=== PATIENT | female | born 1960 | race Caucasian/White ===

== ENCOUNTER 2017-03-31 00:41 | Inpatient (IN) ==
[2017-03-31] MEDS ORDERED: SODIUM CHLORIDE 0.9% 1,000 ML IV STA (01:47)
[2017-03-31] MEDS ORDERED: ONDANSETRON 4 MG/2 ML VIAL IV STA (01:47)
[2017-03-31] MEDS ORDERED: HYDROmorphone 2 MG/1 ML VIAL IV STA (01:47)
[2017-03-31 02:06] LABS: Basophils % 0.1 % (0.0-0.8); Eosinophils % 0.2 % (0.00-10.9); Hematocrit 42.2 VOL% (35.7-47.0); Hemoglobin 14.5 GM/DL (12.0-16.0); Immature Granulocytes % 0.4 %; Immature Granulocytes Absolute 0.05 #; Lymphocytes # 1.8 10*3/uL (1.4-4.0); Lymphocytes % 13.9 % (21.3-54.2); Mean Corpuscular HGB Conc 34.4 GM/DL (32-36); Mean Corpuscular Hemoglobin 34 PG (27-34); Mean Corpuscular Volume 99.1 FL (87-102); Mean Platelet Volume 9.5 FL (9.6-12.0); Monocytes # 0.6 10*3/uL (0.11-0.8); Monocytes % 4.9 % (1.7-12.7); Neutrophils # 10.5 10*3/uL (1.4-7.4); Neutrophils % 80.5 % (38.7-73.9); Platelet Count 217 T/CUMM (130-400); Red Blood Count 4.26 MC/CUMM (3.8-5.5); Red Cell Distribution Width 13.2 % (9.3-17.3)
--- NOTE | 2017-03-31 02:07 | Emergency Department Note ---
IArabella Hilary, am scribing for, and in the presence of, Palak Kent DO 01: 60. IDonte Debra, DO, personally performed the services described in this documentation, ascribed by Neema Bell in my presence, and it is both accurate and complete . Arrival - Arrival Chief Complaint: Abdominal / Flank Pain Stated Complaint: stomach pain/possibe diverticulitis/? heart attack ED Nursing Triage Note: C/O Mid upper abd pain radiating to lower abd. Onset 1700 yesterday. Pt is sedated at time of triage reporting that she took pain meds prior to arrival. Pt reports a history of diverticulitis and states that she thinks that is what is going on. Denies fever. Last BM- yesterday. Denies urinary s/s. Pt is being treated in [place] for Lung CA with oral chemo Mode of Arrival: Wheelchair Limitations: No Limitations Source: Patient, RN Notes Reviewed Time Seen by Provider: 03/31/17 01:35 - History of Present Illness HPI Narrative: Pt is a 56 y/o white female presenting to the ED with c/o abdominal pain which onset yesterday around 1700. She reports having a hx of diverticulitis and states that the pain is the same. She confirms nausea, vomiting and chills. Her states that 2mo she had surgery for her diverticulitis and that they were told she had another abscess but it was small and they "didn't want to mess with it", she was in the hospital for 8 days while it drained. No other complaints or problems stated in the ED. Pt is being treated in [place] for Lung CA with oral chemo. Onset (ago): day(s) Consistency: constant Severity: severe Severity scale (1-10): 5 Quality: stabbing Date of Last Menstrual Period: PM Allergies/Adverse Reactions: Allergies Allergy/AdvReac Type Severity Reaction Status Date / Time No Known Allergies Allergy Verified 02/20/17 14:04 Home Medications: Home Medications Medication Instructions Recorded Confirmed Type Hydromorphone HCl [Dilaudid] 4 - 8 mg PO Q4H PRN 02/03/16 03/31/17 History Oxycodone HCl [Oxycontin] 1 tablet PO Q12H 02/03/16 03/31/17 History Prochlorperazine Tab [Compazine 10 mg PO Q6H PRN 08/18/16 03/31/17 History Tab] Ascorbic Acid Tab [Vitamin C Tab] 500 mg PO BID 11/25/16 03/31/17 History Cholecalciferol (Vitamin D3) 3,000 unit PO DAILY 11/25/16 03/31/17 History [Vitamin D3] Cyanocobalamin (Vitamin B-12) 1,000 mcg PO DAILY 11/25/16 03/31/17 History [Vitamin B-12] Milk Thistle Seed Extract [Milk 350 mg PO BID 11/25/16 03/31/17 History Thistle] Pyridoxine HCl (Vitamin B6) 250 mg PO DAILY 11/25/16 03/31/17 History [Vitamin B-6] Hydrocortisone 2.5% Cream 1 applic TOP TID PRN #0 applic 11/28/16 03/31/17 Rx ALPRAZolam [Alprazolam] 2 mg PO BID PRN 02/20/17 03/31/17 History Folic Acid/Mv,Iron,Min [One Daily 1 each PO DAILY 02/20/17 03/31/17 History For Women Tablet] Gabapentin [Gabapentin] 600 mg PO Q8H 02/20/17 03/31/17 History Levothyroxine Tab [Synthroid Tab] 75 mcg PO DAILY@0700 02/20/17 03/31/17 History Meloxicam [Meloxicam] 15 mg PO DAILY 02/20/17 03/31/17 History cloNIDine TAB [Catapres Tab] 0.1 mg PO DAILY PRN #20 tablet 02/20/17 03/31/17 Rx Review of System - Review of System 12 point system: reviewed and no additional remarkable complaints except as stated - Review of System Constitutional: Present: chills Gastrointestinal: Present: abdominal pain, nausea, vomiting Medical,Surgical,& Family Hx - Medical History Neurology: History of: Migraine HEENT: History of: Dental Problems (UPPER DENTURES) Rheumatology: History of;: Fibromyalgia, Rheumatoid Arthritis Respiratory: History of: COPD, Lung Cancer (04/2015), Respiratory Problems ( PAINFUL MASS R NECK) Musculoskeletal: History of: Musculoskeletal Problems (WHIP LASH FIBROMALYGIA) Reproductive: No history of: Reproductive Problems (no menstral period in 8 years) Other: History of: Cancer (Stage IV Lung CA) - Surgical History Neurologic Surgeries: Surgical HX of: Neurologic Surgery (METASTATIC BRAIN CA- TUMOR REMOVED) - Family History Family History: Reports;: Family Cancer - Social History Smoking Status: Current every day smoker Frequency of Alcohol Use: None Type of Drug Use: None Exam Vital Signs: Vital Signs Temperature 98.5 F 03/31/17 02:34 Pulse Rate 68 03/31/17 02:34 Respiratory Rate 14 03/31/17 02:34 Blood Pressure 151/85 03/31/17 02:34 O2 Sat by Pulse Oximetry 97 03/31/17 00:50 - General General appearance: alert, in no apparent distress - Head Head exam: Present: atraumatic, normocephalic - Eye Eye exam: Present: normal appearance, PERRL, EOMI - ENT ENT exam: Present: mucous membranes moist, TM's normal bilaterally. Absent: mucous membranes dry - Neck Neck exam: Present: full ROM, trachea midline. Absent: tenderness - Chest Chest inspection: Present: symmetric chest wall rise. Absent: tenderness - Respiratory Respiratory exam: Present: normal lung sounds bilaterally. Absent: respiratory distress - Cardiovascular Cardiovascular exam: Present: regular rate, normal rhythm, normal heart sounds. Absent: murmur, rubs, gallop - Abdominal Exam Abdominal exam: Present: soft, tenderness (diffusely, left greater than right tenderness), normal bowel sounds. Absent: distention - Extremities Exam Extremities exam: Present: full ROM. Absent: tenderness - Back Exam Back exam: Present: full ROM. Absent: tenderness - Neurological Exam Neurological exam: Present: alert, oriented X3, CN II-XII intact. Absent: motor sensory deficit - Psychiatric Psychiatric exam: Present: normal affect, normal mood - Skin Skin exam: Present: warm, dry, intact, normal color. Absent: rash Course Course Narrative: spoke with DR Ng who will take pt to sx in am . Results - Labs CBC & BMP: 03/31/17 01:51 03/31/17 01:51 Lab Results: I have reviewed the patients labs Labs: Laboratory Tests 03/31/17 01:51 WBC 13.0 H RBC 4.26 Hgb 14.5 Hct 42.2 Plt Count 217 MPV 9.5 L Neut % (Auto) 80.5 H Lymph % (Auto) 13.9 L Neut # (Auto) 10.5 H Laboratory Tests 03/31/17 03/31/17 01:51 01:51 INR 1.0 PT Patient/Control Mix 10.8 Circ Anticoag PTT 26.2 Sodium 139 Potassium 3.2 L Chloride 106 Carbon Dioxide 28 BUN 16 Creatinine 0.90 Glucose 140 H ALT 73 H Alkaline Phosphatase 218 H Total Protein 7.6 Globulin 3.8 H Albumin/Globulin Ratio 1.0 L - Diagnostic Findings Procedure: CT Abdomen and Pelvis: report reviewed by me (acute appendicitis) Disposition Clinical Impression: Acute appendicitis Case discussed with: patient, patient's family Disposition: Still a Patient Condition: Stable Time of Disposition: 03:38
[2017-03-31 02:16] LABS: PT Patient Result 10.8 SECS; Partial Thromboplastin Time 26.2 SECS (0-40)
[2017-03-31] MEDS ORDERED: ONDANSETRON 4 MG/2 ML VIAL ONE (02:18)
[2017-03-31] MEDS ORDERED: HYDROmorphone 2 MG/1 ML VIAL ONE (02:19)
[2017-03-31 02:23] LABS: Alanine Aminotransferase 73 U/L (13-56); Albumin 3.8 G/DL (3.4-5.0); Alkaline Phosphatase 218 U/L (45-117); Aspartate Amino Transferase 36 U/L (0-37); Bilirubin,Total < 0.39 MG/DL (0.2-1.0); Blood Urea Nitrogen 16 MG/DL (7-18); Calcium 8.9 MG/DL (8.5-10.1); Glucose 140 MG/DL (74-106); Osmolality,Calculated 279.5 MOS/KG (273-304); Potassium 3.2 MMOL/L (3.5-5.1); Sodium 139 MMOL/L (136-145); Total Protein 7.6 G/DL (6.4-8.3)
[2017-03-31] MEDS ORDERED: ONDANSETRON 4 MG/2 ML VIAL IV PRN ×2 (03:39)
[2017-03-31] MEDS: HYDROmorphone 2 MG/1 ML VIAL IV PRN ×4 (04:34→21:06)
[2017-03-31] MEDS: DEXTROSE 5% NACL 0.45% 1,000 ML IV SCH ×2 (04:34→15:33)
[2017-03-31] MEDS ORDERED: BUPIVACAINE MPF 0.25% /EPI 30 ML VIAL ONE (06:21)
[2017-03-31] MEDS ORDERED: LIDOCAINE 1%/EPI INJ 20 ML VIAL ONE (06:22)
--- NOTE | 2017-03-31 07:07 | General Surg History&Physical ---
Assessment and Plan (1) Acute appendicitis Status: Acute Assessment and plan: This patient has acute appendicitis. I have recommended a laparoscopic appendectomy. Her monoclonal antibiotic treatment for lung cancer will be discussed with her oncologist on Saturday for now I have recommended proceeding with surgery to treat her appendicitis. I discussed the risks, benefits, and alternatives of the operation, and the expected outcomes have been reviewed. Patient would like to proceed with the operation. Current Visit: Yes History of Present Illness Chief complaint: Abdominal pain History of present illness: Ms. Dyer is a 56 year old female with a history of metastatic lung cancer currently on Keytruda who presents to the hospital with abdominal pain and nausea. She had elevated white blood cell count and right lower quadrant pain and the CT scan showed acute nonperforated appendicitis. She is admitted to the hospital for antibiotics and resuscitation and laparoscopic appendectomy. Home Medications Medication Instructions Recorded Confirmed Type Hydromorphone HCl [Dilaudid] 4 - 8 mg PO Q4H PRN 02/03/16 03/31/17 History Oxycodone HCl [Oxycontin] 1 tablet PO Q12H 02/03/16 03/31/17 History Prochlorperazine Tab [Compazine 10 mg PO Q6H PRN 08/18/16 03/31/17 History Tab] Ascorbic Acid Tab [Vitamin C Tab] 500 mg PO BID 11/25/16 03/31/17 History Cholecalciferol (Vitamin D3) 3,000 unit PO DAILY 11/25/16 03/31/17 History [Vitamin D3] Cyanocobalamin (Vitamin B-12) 1,000 mcg PO DAILY 11/25/16 03/31/17 History [Vitamin B-12] Milk Thistle Seed Extract [Milk 350 mg PO BID 11/25/16 03/31/17 History Thistle] Pyridoxine HCl (Vitamin B6) 250 mg PO DAILY 11/25/16 03/31/17 History [Vitamin B-6] Hydrocortisone 2.5% Cream 1 applic TOP TID PRN #0 applic 11/28/16 03/31/17 Rx ALPRAZolam [Alprazolam] 2 mg PO BID PRN 02/20/17 03/31/17 History Folic Acid/Mv,Iron,Min [One Daily 1 each PO DAILY 02/20/17 03/31/17 History For Women Tablet] Gabapentin [Gabapentin] 600 mg PO Q8H 02/20/17 03/31/17 History Levothyroxine Tab [Synthroid Tab] 75 mcg PO DAILY@0700 02/20/17 03/31/17 History Meloxicam [Meloxicam] 15 mg PO DAILY 02/20/17 03/31/17 History cloNIDine TAB [Catapres Tab] 0.1 mg PO DAILY PRN #20 tablet 02/20/17 03/31/17 Rx Allergies Allergy/AdvReac Type Severity Reaction Status Date / Time No Known Allergies Allergy Verified 02/20/17 14:04 Medical,Surgical,& Family Hx - Medical History Neurology: History of: Migraine HEENT: History of: Dental Problems (UPPER DENTURES) Rheumatology: History of;: Fibromyalgia, Rheumatoid Arthritis Respiratory: History of: COPD, Lung Cancer (04/2015), Respiratory Problems ( PAINFUL MASS R NECK) Gastrointestinal: History of: Diverticulitis/ Diverticulosis Musculoskeletal: History of: Musculoskeletal Problems (WHIP LASH FIBROMALYGIA) No history of: Amputation Reproductive: No history of: Reproductive Problems (no menstral period in 8 years) Other: History of: Cancer (Stage IV Lung CA) - Surgical History Thoracic Surgeries: Patient denies;: Organ Transplant Neurologic Surgeries: Surgical HX of: Neurologic Surgery (METASTATIC BRAIN CA- TUMOR REMOVED) HEENT Surgeries: Patient denies: Tonsilectomy & Adenoidectomy Abdominal Surgeries: Patient denies: Appendectomy - Family History Family History: Reports;: Family Cancer - Social History Smoking Status: Current every day smoker Frequency of Alcohol Use: None Type of Drug Use: None Exam - Constitutional Vitals: Period Temp Pulse Resp BP Sys/Mera Pulse Ox Last 24 Hr 98.5 F-98.7 F 53-68 12-18 128-151/81-85 97-100 General appearance: normal weight, no acute distress - Head Head exam: Present: normal inspection, normocephalic - Eye Eye exam: Present: EOMI. Absent: scleral icterus Pupils: Present: ROSANNE - ENT ENT exam: Present: normal exam Mouth exam: Present: normal external inspection, normal voice - Neck Neck exam: Present: normal inspection, trachea midline - Respiratory Respiratory exam: Present: clear to auscultation bilaterally. Absent: accessory muscle use, chest wall tenderness - Cardiovascular Cardiovascular exam: Present: RRR. Absent: systolic murmur, tachycardia - GI/Abdominal GI/Abdominal exam: Present: normal bowel sounds, tenderness (There is focal tenderness in the right lower quadrant with rebound and guarding), soft. Absent : rebound - Extremities Exam Extremities exam: Present: normal inspection, normal capillary refill - Back Exam Back exam: Present: normal inspection - Neurological Exam Neurological exam: Present: alert, oriented X3 Speech: Present: normal - Skin Skin exam: Present: normal color, warm - Constitutional Constitutional: Present: as per HPI - EENT Nose, mouth and throat: Present: as per HPI - Cardiovascular Cardiovascular: Present: as per HPI - Respiratory Respiratory: Present: as per HPI - Gastrointestinal Gastrointestinal: Present: as per HPI - Genitourinary Genitourinary: Present: as per HPI - Musculoskeletal Musculoskeletal: Present: as per HPI - Neurological Neurological: Present: as per HPI - Endocrine Endocrine: Present: as per HPI Hematologic/Lymphatic: Present: as per HPI Results - Labs CBC & BMP: 03/31/17 01:51 03/31/17 01:51 - Diagnostic Findings Procedure: CT Abdomen and Pelvis: image reviewed by me (Acute appendicitis with dilated appendix is fluid-filled and thickened wall. There is no evidence of perforation or abscess.)
[2017-03-31] MEDS: PANTOPRAZOLE 40 MG TABLET PO SCH (08:49)
--- NOTE | 2017-03-31 08:50 | CT Report ---
Referring physician: Palak Kent DO EXAM: CT abdomen and pelvis with contrast DATE: 03/31/2017 COMPARISON: 11/25/2016 REASON: Generalized abdominal pain TECHNIQUE: Axial images of the abdomen and pelvis were obtained after administration of 100 cc of Omnipaque 350 IV contrast. Coronal and sagittal reformatted images were also provided. Total DLP is 303.10 mGy*cm. This exam was initially interpreted by [facility]. FINDINGS: Reduced parenchymal findings at the lung bases with chronic scarring. Fatty infiltration of the liver which is stable in size with no masses, dilated ducts, or calcified gallstones. The spleen, pancreas, and adrenal glands are stable in appearance. Small renal cysts are noted. Calcification in the wall of the nondilated abdominal aorta with no adjacent at adenopathy. No dilatation of the small bowel. Minimally increased fluid in the colon with air-fluid levels. Fluid-filled dilated appendix measuring 14 mm in diameter. Surrounding minimal fluid and soft tissue stranding. The findings are difficult to separate from the fundus of the uterus. Interval removal of the surgical drain from the pelvis with no residual abscess the level of the previously noted abscess cavities. No acute urinary bladder pathology identified. Persistent levoscoliosis with degenerative changes. IMPRESSION: Evidence of appendicitis with probable associated mild ileus. Fatty infiltration of the liver with renal cysts. Some of the smaller findings are difficult to evaluate in the kidneys. Diffuse arterial calcifications. The CT exam was performed using one or more of the following dose reduction techniques: Automated exposure control and adjustment of the mA and/or kV according to patient size. PROCEDURE INTERPRETED AT [facility] DEPARTMENT OF RADIOLOGY Final Report Signed by: Dr. Dnaielle Mg
[2017-03-31] MEDS ORDERED: TISSUE ADHESIVE 1 EACH APPLICATOR TOP ONE (12:39)
--- NOTE | 2017-03-31 12:51 | Operative Note ---
Date of procedure: 03/31/17 Pre-op diagnosis: Acute appendicitis Post-op diagnosis: other (Acute perforated appendicitis with intra-abdominal pus ) Procedure: Preoperative diagnosis Acute appendicitis Postoperative diagnosis Acute perforated appendicitis Procedures performed Laparoscopic appendectomy Findings There is acute inflammation of the appendix and a perforation in the mid body of the appendix with pus in the abdominal cavity in the pelvis. There were adhesions between the appendix and what appeared to be a prior abscess cavity consistent with perforated appendicitis causing the patient's episode back in November 2016. The appendix was freed up from scar tissue and was able to be removed laparoscopically safely. The cultures were sent from the pus that was drained from the abdomen and the SUSAN drain was left in the area of the purulent drainage that was in the abdominal cavity. Blood loss 5 mL Anesthesia GETA Complications None apparent Specimen 1. Cultures 2. Appendix Indications Acute appendicitis. I discussed the option of medical treatment with antibiotics alone with the patient in detail. I discussed the failure rate of 25% with antibiotics alone and the requirement to stay in the hospital for several days of antibiotics and observation. The patient decided to proceed with laparoscopic appendectomy. I discussed the risks, benefits, and alternatives of the operation with the patient, and the expected outcomes were reviewed. In particular, I discussed the risk of bleeding, infection, wound complications, bowel obstruction, and ureteral injury. The patient elects to proceed with the operation. Description of procedure The patient was taken to the operating room and transferred to the operating table in the supine position. Pressure points were padded and SCDs were placed to bilateral lower extremities. General endotracheal anesthesia was administered. The abdominal hair was clipped with electric clippers and the abdomen was prepped with chlorhexidine and draped sterilely. Preoperative antibiotics were administered, and a timeout was performed. The abdomen was entered in the supraumbilical location in the right paramedian position with a Veress needle. Local anesthetic was administered and a 12 mm skin incision was made with an 11 blade scalpel. Penetrating towel clips were used to grasp the abdominal wall skin and a Veress needle was used into the peritoneal cavity. [ Intra-peritoneal location was confirmed with a double click technique.] Aspiration was negative. Saline drop test confirmed intraperitoneal location. The abdomen was insufflated to 15 mmHg with initial insufflation pressure of 2 mmHg. The Veress needle was removed and a 12 mm trocar was placed bluntly. Diagnostic laparoscopy was then performed. There was no evidence of Veress needle or trocar injury. There was pus in the abdominal cavity specifically in the pelvis and the right paracolic gutter as well as above the liver. The patient was placed in Trendelenburg and left side rolled down position. Under direct visualization, and after local anesthetic was administered, 2 additional 5 mm trochars were placed in the suprapubic position in the left lower quadrant position. The bowel was then moved out of the right lower quadrant and the appendix was visualized. There were significant adhesions between the small bowel and the appendix and the prior interloop abscess as well as pelvic abscess was consistent with a periappendiceal abscess based on what was seen in the operating room today. The adhesions between the appendix and the prior abscess cavity and small bowel are significant and they were freed up and completely mobilized safely using sharp dissection. The small bowel was healthy and viable with no evidence of serosal injury or injury to the intestines. There was no significant involvement of the sigmoid colon which was initially thought to be playing a role in the patient's pelvic abscess back in November 2016. The appendix was grasped and retracted towards the patient's feet in a window in the appendiceal mesentery was created with [place] dissector. TARA stapler was then used to transect the base of the appendix. The appendiceal mesentery was also divided using vascular staple loads. A SUSAN drain was placed to the suprapubic trocar and sewn in with a 3-0 nylon suture. The right lower quadrant was focally suction irrigated. This was done until the effluent was clear. The appendix was placed in Endo Catch bag and removed through the 12 mm trocar site. The CO2 was then released from the abdomen and the trochars were removed. Skin incisions were closed with 4-0 Monocryl and sterile skin glue was applied. The patient was awakened from anesthesia and transferred to recovery. Postoperative plan Diet as tolerated Continue antibiotic Surgeon / Physician: Jeremias Ng Estimated blood loss: minimal Specimens: other (1. cultures 2. appendix) Disposition: PACU Results - Labs CBC & BMP: 03/31/17 01:51 03/31/17 01:51 Discharge Plan - Discharge Medications No Action Hydromorphone HCl [Dilaudid] 4 - 8 mg PO Q4H PRN PRN Reason: BREAKTHROUGH PAIN Oxycodone HCl [Oxycontin] 1 tablet PO Q12H Prochlorperazine Tab [Compazine Tab] 10 mg PO Q6H PRN PRN Reason: Nausea Pyridoxine HCl (Vitamin B6) [Vitamin B-6] 250 mg PO DAILY Milk Thistle Seed Extract [Milk Thistle] 350 mg PO BID Ascorbic Acid Tab [Vitamin C Tab] 500 mg PO BID Cyanocobalamin (Vitamin B-12) [Vitamin B-12] 1,000 mcg PO DAILY Hydrocortisone 2.5% Cream 1 applic TOP TID PRN #0 applic PRN Reason: Itching Gabapentin [Gabapentin] 600 mg PO Q8H Levothyroxine Tab [Synthroid Tab] 75 mcg PO DAILY@0700 ALPRAZolam [Alprazolam] 2 mg PO BID PRN PRN Reason: Anxiety Cholecalciferol (Vitamin D3) [Vitamin D3] 3,000 unit PO DAILY Folic Acid/Mv,Iron,Min [One Daily For Women Tablet] 1 each PO DAILY Meloxicam [Meloxicam] 15 mg PO DAILY cloNIDine TAB [Catapres Tab] 0.1 mg PO DAILY PRN #20 tablet PRN Reason: Blood Pressure-Increased - Follow Up or Referral - Forms/Instructions
[2017-03-31] MEDS ORDERED: PROCHLORPERAZINE 10 MG TABLET PO PRN (13:30)
[2017-03-31] MEDS ORDERED: cloNIDine 0.1 MG TABLET PO PRN (13:30)
[2017-03-31] MEDS ORDERED: HYDROCORTISONE 2.5% CREAM 30 GM TUBE TOP PRN (13:30)
[2017-03-31] MEDS ORDERED: ePHEDrine 50 MG/ML AMP ONE (14:24)
[2017-03-31] MEDS ORDERED: MIDAZOLAM 2 MG/2 ML VIAL ONE (14:26)
[2017-03-31] MEDS ORDERED: fentaNYL 100 MCG/2 ML VIAL ONE (14:26)
[2017-03-31] MEDS ORDERED: SEVOFLURANE 1 UNIT/15 MINUTE INH ONE (14:26)
[2017-03-31] MEDS: GABAPENTIN 600 MG TABLET PO SCH ×2 (15:33→21:31)
--- NOTE | 2017-03-31 15:34 | Anesthesia Post-Op ---
Anesthesia Post OP - Post Ansesthetic Evaluation Patient seen in post op: Yes Resp: within normal limits CV: within normal limits Mental: within normal limits Temp: within normal limits [id number]: within normal limits Nausea and Vomiting: within normal limits Pain: within normal limits
[2017-03-31] MEDS: MILK THISTLE SEED EXTRACT PO SCH (21:30)
[2017-03-31] MEDS: ASCORBIC ACID 500 MG TABLET PO SCH (21:30)
[2017-04-01] MEDS: DEXTROSE 5% NACL 0.45% 1,000 ML IV SCH ×4 (02:00→21:47)
[2017-04-01 05:09] LABS: Basophils % 0.2 % (0.0-0.8); Eosinophils # 0.1 10*3/uL (0.0-0.87); Eosinophils % 1.2 % (0.00-10.9); Hematocrit 37.9 VOL% (35.7-47.0); Hemoglobin 12.4 GM/DL (12.0-16.0); Immature Granulocytes % 0.7 %; Immature Granulocytes Absolute 0.07 #; Lymphocytes # 2.3 10*3/uL (1.4-4.0); Lymphocytes % 23.8 % (21.3-54.2); Mean Corpuscular HGB Conc 32.7 GM/DL (32-36); Mean Corpuscular Hemoglobin 33 PG (27-34); Mean Corpuscular Volume 102.2 FL (87-102); Mean Platelet Volume 9.9 FL (9.6-12.0); Monocytes # 0.3 10*3/uL (0.11-0.8); Monocytes % 3.3 % (1.7-12.7); Neutrophils # 6.7 10*3/uL (1.4-7.4); Neutrophils % 70.8 % (38.7-73.9); Platelet Count 173 T/CUMM (130-400); Red Blood Count 3.71 MC/CUMM (3.8-5.5); Red Cell Distribution Width 13.3 % (9.3-17.3); White Blood Count 9.5 T/CUMM (4-12)
[2017-04-01] MEDS: GABAPENTIN 600 MG TABLET PO SCH ×3 (05:25→21:23)
[2017-04-01 05:41] LABS: Calcium 7.3 MG/DL (8.5-10.1); Magnesium 1.7 MG/DL (1.8-2.4); Potassium 3.4 MMOL/L (3.5-5.1)
[2017-04-01] MEDS: HYDROmorphone 2 MG/1 ML VIAL IV PRN ×4 (06:57→20:08)
[2017-04-01] MEDS: LEVOTHYROXINE 75 MCG TABLET PO SCH (07:00)
[2017-04-01] MEDS ORDERED: LACTATED RINGERS 1,000 ML IV ONE (08:43)
[2017-04-01] MEDS: CYANOCOBALAMIN 500 MCG TABLET PO SCH (08:57)
[2017-04-01] MEDS: PYRIDOXINE 100 MG TABLET PO SCH (08:58)
[2017-04-01] MEDS: CHOLECALCIFEROL 1,000 UNIT TABLET PO SCH (08:58)
[2017-04-01] MEDS: MELOXICAM 7.5 MG TABLET PO SCH (08:58)
[2017-04-01] MEDS: PANTOPRAZOLE 40 MG TABLET PO SCH (08:59)
[2017-04-01] MEDS: ASCORBIC ACID 500 MG TABLET PO SCH ×2 (08:59→21:24)
[2017-04-01] MEDS: MULTIVITAMIN (CENTRUM) TABLET PO SCH (08:59)
[2017-04-01] MEDS: MILK THISTLE SEED EXTRACT PO SCH ×2 (09:09→21:46)
[2017-04-01] MEDS ORDERED: MAGNESIUM SULF RIDER 2 GM in PREMIX 1 EACH IV PRN (11:17)
[2017-04-01] MEDS ORDERED: MAGNESIUM SULF RIDER 4 GM in PREMIX 1 EACH IV PRN (11:17)
--- NOTE | 2017-04-01 11:21 | Event Note ---
General Surgery Progress Note Chief complaint This patient is a 56-year-old woman admitted with perforated appendicitis treated with laparoscopic appendectomy on 03/31/2017 Interval history The patient does not feel well today. Her vital signs are normal and her labs are fairly stable with the exception of a mild increase in her creatinine but she just does not feel very good and is not eating well. She has nausea with no vomiting. Her bowels have not moved since surgery. She has not been up to ambulate since the operation. Physical exam Afebrile with normal vital signs Chest is clear Heart is regular Abdomen is soft and appropriately tender with hypoactive bowel sounds and slightly distended Labs Reviewed, as above Imaging None new Assessment and plan Continue current treatment plan with IV antibiotics and IV fluids Add a 1 L bolus of LR today due to increasing creatinine and decreased p.o. intake Increase activity and ambulate in the hallway today Repeat labs tomorrow
[2017-04-01] MEDS ORDERED: ONDANSETRON 4 MG/2 ML VIAL ONE (11:45)
[2017-04-01] MEDS ORDERED: ROCURONIUM 100 MG/10 ML VIAL IV ONE (11:45)
[2017-04-01] MEDS ORDERED: PROPOFOL 200 MG/20 ML VIAL IV ONE (11:45)
[2017-04-01] MEDS: oxyCODONE ER 20 MG TABLET PO SCH ×2 (11:49→21:23)
[2017-04-01] MEDS: ALPRAZolam 0.5 MG TABLET PO PRN ×2 (11:52→21:23)
[2017-04-02] MEDS: DEXTROSE 5% NACL 0.45% 1,000 ML IV SCH (00:58)
[2017-04-02] MEDS: HYDROmorphone 2 MG/1 ML VIAL IV PRN (03:17)
[2017-04-02 05:16] LABS: Basophils % 0.3 % (0.0-0.8); Eosinophils # 0.4 10*3/uL (0.0-0.87); Eosinophils % 4.6 % (0.00-10.9); Hematocrit 36.4 VOL% (35.7-47.0); Hemoglobin 11.8 GM/DL (12.0-16.0); Immature Granulocytes % 0.9 %; Immature Granulocytes Absolute 0.07 #; Lymphocytes % 24.5 % (21.3-54.2); Mean Corpuscular HGB Conc 32.4 GM/DL (32-36); Mean Corpuscular Hemoglobin 33 PG (27-34); Mean Corpuscular Volume 102.8 FL (87-102); Monocytes # 0.4 10*3/uL (0.11-0.8); Monocytes % 5.5 % (1.7-12.7); Neutrophils # 5.1 10*3/uL (1.4-7.4); Neutrophils % 64.2 % (38.7-73.9); Platelet Count 173 T/CUMM (130-400); Red Blood Count 3.54 MC/CUMM (3.8-5.5); Red Cell Distribution Width 13.2 % (9.3-17.3)
[2017-04-02] MEDS: GABAPENTIN 600 MG TABLET PO SCH ×3 (05:42→21:36)
[2017-04-02 05:51] LABS: Osmolality,Calculated 284.7 MOS/KG (273-304); Potassium 3.7 MMOL/L (3.5-5.1)
[2017-04-02] MEDS: LEVOTHYROXINE 75 MCG TABLET PO SCH (06:52)
--- NOTE | 2017-04-02 08:19 | Event Note ---
General Surgery Progress Note Chief complaint This patient is a 56-year-old woman admitted with perforated appendicitis treated with laparoscopic appendectomy on 03/31/2017 Interval history The patient still has abdominal pain. She tolerated her diet with no nausea or vomiting yesterday. She is passing gas and having bowel movements but her belly is more distended today. Vital signs are stable and labs are normal Physical exam Afebrile with normal vital signs Chest is clear Heart is regular Abdomen is soft and appropriately tender with hypoactive bowel sounds and slightly more distended. The incisions are clean and dry with no bleeding or infection. The SUSAN drain has some serous fluid is a little bit cloudy but it is clearing up. Labs Reviewed, as above Imaging None new Assessment and plan Discontinue IV fluids Increase activity and ambulation in the hallway Continue current pain regimen and add Toradol Continue antibiotics and we will switch to p.o. regimen today for a 10 day course given her perforated appendicitis with purulent peritonitis
[2017-04-02] MEDS: ENOXAPARIN 40 MG/0.4 ML SYRINGE SUBCUT SCH (09:26)
[2017-04-02] MEDS: MULTIVITAMIN (CENTRUM) TABLET PO SCH (09:27)
[2017-04-02] MEDS: CIPROFLOXACIN 500 MG TABLET PO SCH ×2 (09:27→21:35)
[2017-04-02] MEDS: MELOXICAM 7.5 MG TABLET PO SCH (09:27)
[2017-04-02] MEDS: metroNIDAZOLE 500 MG TABLET PO SCH ×3 (09:27→21:35)
[2017-04-02] MEDS: PANTOPRAZOLE 40 MG TABLET PO SCH (09:28)
[2017-04-02] MEDS: CYANOCOBALAMIN 500 MCG TABLET PO SCH (09:28)
[2017-04-02] MEDS: oxyCODONE ER 20 MG TABLET PO SCH ×2 (09:28→21:35)
[2017-04-02] MEDS: PYRIDOXINE 100 MG TABLET PO SCH (09:29)
[2017-04-02] MEDS: CHOLECALCIFEROL 1,000 UNIT TABLET PO SCH (09:30)
[2017-04-02] MEDS: ASCORBIC ACID 500 MG TABLET PO SCH ×2 (09:30→21:35)
[2017-04-02] MEDS: MILK THISTLE SEED EXTRACT PO SCH ×2 (09:36→20:46)
--- NOTE | 2017-04-02 12:17 | Pathology Report from [facility] ---
[facility] – [place], [place] ACCESSION # : [id number] PATIENT NAME : Constance Dyer ORDERING DR : Jeremias Ng MD CLINICAL HX: Appendicitis POST-OP DX: Same SPECIMEN INFO: Appendix GROSS DESCRIPTION: Received in formalin labeled CONSTANCE DYER is an appendix measuring 6.8 x 1.1 cm. The serosa is pink damon with fibrinous hemorrhagic adhesions and exudate present. The lumen is as edematous and contains a small amount of hemorrhagic material. No fecaliths or perforations are seen. Inorganic Chemist sections are submitted in one cassette. DIAGNOSIS FOR CONSTANCE DYER: APPENDIX, APPENDECTOMY: Acute appendicitis. COLLECTED DATE: 04/01/2017 [facility] REPORT DATE: 04/02/2017 ELECTRONICALLY SIGNED BY: Yeimi Jennings M.D. 04/02/2017 - 9:54:12 [facility]
[2017-04-03] MEDS: GABAPENTIN 600 MG TABLET PO SCH (05:12)
[2017-04-03 05:15] LABS: Basophils % 0.6 % (0.0-0.8); Eosinophils # 0.4 10*3/uL (0.0-0.87); Hematocrit 38.2 VOL% (35.7-47.0); Hemoglobin 12.4 GM/DL (12.0-16.0); Immature Granulocytes % 0.4 %; Immature Granulocytes Absolute 0.03 #; Lymphocytes % 27.5 % (21.3-54.2); Mean Corpuscular HGB Conc 32.5 GM/DL (32-36); Mean Corpuscular Hemoglobin 33 PG (27-34); Mean Corpuscular Volume 101.6 FL (87-102); Mean Platelet Volume 10.4 FL (9.6-12.0); Monocytes # 0.4 10*3/uL (0.11-0.8); Monocytes % 5.8 % (1.7-12.7); Neutrophils # 4.3 10*3/uL (1.4-7.4); Neutrophils % 59.7 % (38.7-73.9); Platelet Count 216 T/CUMM (130-400); Red Blood Count 3.76 MC/CUMM (3.8-5.5); Red Cell Distribution Width 13.1 % (9.3-17.3); White Blood Count 7.2 T/CUMM (4-12)
[2017-04-03 05:48] LABS: Calcium 8.8 MG/DL (8.5-10.1); Magnesium 1.9 MG/DL (1.8-2.4); Potassium 3.9 MMOL/L (3.5-5.1)
[2017-04-03] MEDS: LEVOTHYROXINE 75 MCG TABLET PO SCH (06:51)
[2017-04-03] MEDS: DEXTROSE 5% NACL 0.45% 1,000 ML IV SCH (08:06)
[2017-04-03] MEDS: CYANOCOBALAMIN 500 MCG TABLET PO SCH (08:43)
[2017-04-03] MEDS: MULTIVITAMIN (CENTRUM) TABLET PO SCH (08:43)
[2017-04-03] MEDS: CHOLECALCIFEROL 1,000 UNIT TABLET PO SCH (08:43)
[2017-04-03] MEDS: ASCORBIC ACID 500 MG TABLET PO SCH (08:43)
[2017-04-03] MEDS: ENOXAPARIN 40 MG/0.4 ML SYRINGE SUBCUT SCH (08:43)
[2017-04-03] MEDS: oxyCODONE ER 20 MG TABLET PO SCH (08:43)
[2017-04-03] MEDS: MELOXICAM 7.5 MG TABLET PO SCH (08:43)
[2017-04-03] MEDS: PANTOPRAZOLE 40 MG TABLET PO SCH (08:43)
[2017-04-03] MEDS: metroNIDAZOLE 500 MG TABLET PO SCH (08:44)
[2017-04-03] MEDS: PYRIDOXINE 100 MG TABLET PO SCH (08:44)
[2017-04-03] MEDS: CIPROFLOXACIN 500 MG TABLET PO SCH (08:44)
[2017-04-03] MEDS: MILK THISTLE SEED EXTRACT PO SCH (08:46)
--- NOTE | 2017-04-03 10:59 | Discharge Summary ---
Hospital Course - Hospital Course Hospital Course: Ms. Dyer is a 56-year-old white female with history of metastatic lung cancer admitted by Dr. Ng on 03/31/2017 with abdominal pain and nausea with elevated WBCs. Her CT scan showed an acute nonperforated appendicitis. She was taken to the OR for laparoscopic appendectomy on 03/31/2017 and was found to have an acute perforated appendicitis with intra-abdominal pus. She has been on antibiotics and has required increased pain medicines for pain control due to her cancer pain. Her pain is now well controlled and she is tolerating a diet. She has had a small bowel movement and she is feeling much better. She is requesting a prescription for Xanax for discharge until she can make it to her pain doctor in [place]. Am getting the hospitalist Dr. Polo consulted for her medicines. She is being discharged home on antibiotics and pain medicines with a follow-up with Dr. Ng in 2 weeks. Patient's case was discussed with Dr. Ng, Dr. Polo, patient and nursing. Care coordination, chart review, and completed discharge paperwork took approximately 35 minutes. - Time spent with patient Time with patient DS: Greater than 30 minutes Diagnosis - Discharge Diagnosis (1) Polysubstance abuse Status: Chronic (2) Metastatic lung cancer (metastasis from lung to other site) Status: Chronic (3) Abdominal abscess Status: Resolved (4) Acute appendicitis Status: Resolved Discharge Plan - Discharge Data Disposition: Disch To Home/Self Care Condition at Discharge: Stable Discharge Diet: advance to your usual diet Activity: resume usual activities as tolerated Hygiene: may shower Driving: other (No driving if taking pain medicines) Contact your physician if you experience:: fever over 101, Nausea/Vomiting - Discharge Medications New metroNIDAZOLE TAB [Flagyl Cap/Tab] 500 mg PO TID #21 tablet oxyCODONE/ACETAMINOPHEN 5-325 [Percocet 5-325] 1 - 2 tablet PO Q6H #30 tablet Ciprofloxacin Tab [Cipro Tab] 500 mg PO Q12HR #14 tablet Continue Hydromorphone HCl [Dilaudid] 4 - 8 mg PO Q4H PRN PRN Reason: BREAKTHROUGH PAIN Oxycodone HCl [Oxycontin] 1 tablet PO Q12H Prochlorperazine Tab [Compazine Tab] 10 mg PO Q6H PRN PRN Reason: Nausea Pyridoxine HCl (Vitamin B6) [Vitamin B-6] 250 mg PO DAILY Milk Thistle Seed Extract [Milk Thistle] 350 mg PO BID Ascorbic Acid Tab [Vitamin C Tab] 500 mg PO BID Cyanocobalamin (Vitamin B-12) [Vitamin B-12] 1,000 mcg PO DAILY Hydrocortisone 2.5% Cream 1 applic TOP TID PRN #0 applic PRN Reason: Itching Gabapentin 600 mg PO Q8H Levothyroxine Tab [Synthroid Tab] 75 mcg PO DAILY@0700 ALPRAZolam [Alprazolam] 2 mg PO BID PRN PRN Reason: Anxiety Cholecalciferol (Vitamin D3) [Vitamin D3] 3,000 unit PO DAILY Folic Acid/Mv,Iron,Min [One Daily For Women Tablet] 1 each PO DAILY Meloxicam 15 mg PO DAILY cloNIDine TAB [Catapres Tab] 0.1 mg PO DAILY PRN #20 tablet PRN Reason: Blood Pressure-Increased - Follow Up or Referral Follow Up: Jeremias Ng MD [Physician] - 2 Weeks - Forms/Instructions Exam - Constitutional Vitals: Period Temp Pulse Resp BP Sys/Mera Pulse Ox Last 24 Hr 97.7 F-98.9 F 68-76 14-20 118-157/72-91 90-96 Exam: 56-year-old white female, no acute distress, alert and oriented Chest clear CV regular rate and rhythm Abdomen soft and appropriately tender, incisions look good, drain with minimal output and serosanguineous Extremities no edema Discharge Results Procedures and tests throughout hospitalization: Pending Orders 03/31/17 Body Fluid Cult and Gram Stain Routine Labs on day of discharge: Labs from last 24 hours 04/03/17 04/03/17 04:17 04:17 WBC 7.2 RBC 3.76 L Hgb 12.4 Hct 38.2 MCV 101.6 MCH 33 MCHC 32.5 RDW 13.1 Plt Count 216 D MPV 10.4 Neut % (Auto) 59.7 Lymph % (Auto) 27.5 [place] % (Auto) 5.8 Eos % (Auto) 6.0 Baso % (Auto) 0.6 Neut # (Auto) 4.3 Lymph # (Auto) 2.0 [place] # (Auto) 0.4 Eos # (Auto) 0.4 Baso # (Auto) 0.0 Immature Gran % 0.4 Nucleated RBC % 0.0 Immature Gran # 0.03 Nucleated RBCs # 0.00 Sodium 143 Potassium 3.9 Chloride 106 Carbon Dioxide 31 Anion Gap 9.9 BUN 5 L Creatinine 0.80 GFR Calculation 73 BUN/Creatinine Ratio 6.00 Glucose 92 Calculated Osmolality 281.0 Calcium 8.8 Magnesium 1.9 Preliminary micro results at discharge 03/31/17 Unknown Body Fluid Culture - Preliminary Abdomen - Abdominal Proteus mirabilis Citrobacter farmeri Gram Positive Cocci DS: Provider Date of admission: 03/31/17 03:39 Primary care physician: . No PCP Attending physician on admission: Jeremias Ng MD Consults: 04/01/17 09:30 Consult to Case Mgmt/Social Srvs [CONS] Routine Reason for Case Mgmt/Social Srvs: Other Consult Comment: Pt missing chemotherapy @ [facility] and needs to r/s (Dr. Mason ) Discharging clinician: BRENDA Blount Expected date of discharge: 04/03/17
[2017-04-03 11:29] VITALS: BP 128/82
--- NOTE | 2017-04-03 12:32 | Hospitalist Consult Note ---
Assessment and Plan - Time spent with patient Time spent with patient: Greater than 30 minutes (1) Anxiety Status: Acute Assessment and plan: The patient appears to have filled her prescription in January for 60 tablets. She understands the risks of longterm Benzodiazepam use however in her case regarding the psychological effects of metastatic lung cancer, I will prescribe her xanax for an additional two weeks until she can find a physician who will take over her care. Current Visit: Yes History of Present Illness - Consult Narrative Reason for consult: Medication Refill History of present illness: Ms. Dyer is a 56 year old female with metastatic lung cancer to her brain who was admitted to the surgical service for acute appendicitis. She is status post lap appendectomy. She recovered well from the procedure, and at discharge requested her xanax to be refilled. She states she no longer sees her previous cancer doctor who was prescribing her medication as she is in the process of finding a new physician. BRENDA Arnold checked with her pharmacy and discovered she had filled her prescriptions for 90 in november and 60 in january. She takes them twice a day and states if she does not she may have "another seizure". Currently she has no complaints, states her stomach feels much better however is a little sore from surgery. Full 12 point ROS performed. CC: Jeremias Ng MD - Home Medications and Allergies Home Medications: Home Medications Medication Instructions Recorded Confirmed Type Hydromorphone HCl [Dilaudid] 4 - 8 mg PO Q4H PRN 02/03/16 03/31/17 History Oxycodone HCl [Oxycontin] 1 tablet PO Q12H 02/03/16 03/31/17 History Prochlorperazine Tab [Compazine 10 mg PO Q6H PRN 08/18/16 03/31/17 History Tab] Ascorbic Acid Tab [Vitamin C Tab] 500 mg PO BID 11/25/16 03/31/17 History Cholecalciferol (Vitamin D3) 3,000 unit PO DAILY 11/25/16 03/31/17 History [Vitamin D3] Cyanocobalamin (Vitamin B-12) 1,000 mcg PO DAILY 11/25/16 03/31/17 History [Vitamin B-12] Milk Thistle Seed Extract [Milk 350 mg PO BID 11/25/16 03/31/17 History Thistle] Pyridoxine HCl (Vitamin B6) 250 mg PO DAILY 11/25/16 03/31/17 History [Vitamin B-6] Hydrocortisone 2.5% Cream 1 applic TOP TID PRN #0 applic 11/28/16 03/31/17 Rx Folic Acid/Mv,Iron,Min [One Daily 1 each PO DAILY 02/20/17 03/31/17 History For Women Tablet] Gabapentin 600 mg PO Q8H 02/20/17 03/31/17 History Levothyroxine Tab [Synthroid Tab] 75 mcg PO DAILY@0700 02/20/17 03/31/17 History Meloxicam 15 mg PO DAILY 02/20/17 03/31/17 History cloNIDine TAB [Catapres Tab] 0.1 mg PO DAILY PRN #20 tablet 02/20/17 03/31/17 Rx ALPRAZolam [Alprazolam] 2 mg PO BID PRN #28 tablet 04/03/17 Rx Ciprofloxacin Tab [Cipro Tab] 500 mg PO Q12HR #14 tablet 04/03/17 Rx metroNIDAZOLE TAB [Flagyl Cap/Tab] 500 mg PO TID #21 tablet 04/03/17 Rx oxyCODONE/ACETAMINOPHEN 5-325 1 - 2 tablet PO Q6H #30 tablet 04/03/17 Rx [Percocet 5-325] Allergies/Adverse Reactions: Allergies Allergy/AdvReac Type Severity Reaction Status Date / Time No Known Allergies Allergy Verified 02/20/17 14:04 Medical,Surgical,& Family Hx - Medical History Neurology: History of: Migraine HEENT: History of: Dental Problems (UPPER DENTURES) Rheumatology: History of;: Fibromyalgia, Rheumatoid Arthritis Respiratory: History of: COPD, Lung Cancer (04/2015), Respiratory Problems ( PAINFUL MASS R NECK) Gastrointestinal: History of: Diverticulitis/ Diverticulosis Musculoskeletal: History of: Musculoskeletal Problems (WHIP LASH FIBROMALYGIA) No history of: Amputation Reproductive: No history of: Reproductive Problems (no menstral period in 8 years) Other: History of: Cancer (Stage IV Lung CA) - Surgical History Thoracic Surgeries: Patient denies;: Organ Transplant Neurologic Surgeries: Surgical HX of: Neurologic Surgery (METASTATIC BRAIN CA- TUMOR REMOVED) HEENT Surgeries: Patient denies: Tonsilectomy & Adenoidectomy Abdominal Surgeries: Patient denies: Appendectomy - Family History Family History: Reports;: Family Cancer - Social History Smoking Status: Current every day smoker Frequency of Alcohol Use: None Type of Drug Use: None 12 point system: reviewed and no additional remarkable complaints except as stated Exam - Constitutional Vitals: Period Temp Pulse Resp BP Sys/Mera Pulse Ox Last 24 Hr 97.7 F-99.0 F 68-76 14-20 118-157/72-91 90-96 General appearance: no acute distress - Head Head exam: Present: normocephalic, atraumatic - Eye Eye exam: Present: EOMI Pupils: Present: ROSANNE - ENT ENT exam: Present: normal exam - Neck Neck exam: Present: normal inspection - Respiratory Respiratory exam: Present: clear to auscultation bilaterally. Absent: rhonchi, wheezes - Cardiovascular Cardiovascular exam: Present: regular rate and rhythm. Absent: gallop, rubs, systolic murmur - GI/Abdominal GI/Abdominal exam: Present: normal bowel sounds, soft. Absent: distended, firm , guarding, tenderness, rebound - Extremities Exam Extremities exam: Present: normal inspection. Absent: calf tenderness, edema Results - Labs CBC & BMP: 04/03/17 04:17 04/03/17 04:17 Lab Results: I have reviewed the past 24 hour labs Specialty Discharge - Follow Up or Referrals Follow up with: Jeremias Ng MD [Physician] - 04/15/17 9:15 am
== END 2017-04-03 13:15 | disposition home or self-care (01) | DRG 339 ==
LOC: N.ED 00:41 → N.EDINP 03:39 → N.3E 04:02
PROVIDERS: ADMIT Surgery; ATTEND Surgery

== ENCOUNTER 2019-03-16 22:27 | Inpatient (IN) ==
[2019-03-16] MEDS ORDERED: FUROSEMIDE 100 MG/10 ML VIAL IV STA (23:25)
[2019-03-16] MEDS ORDERED: MORPHINE 4 MG/1 ML VIAL IV STA (23:25)
[2019-03-16] MEDS ORDERED: ONDANSETRON 4 MG/2 ML VIAL IV STA (23:25)
[2019-03-16] MEDS ORDERED: SODIUM CHLORIDE 0.9% 500 ML IV STA (23:25)
[2019-03-16] MEDS ORDERED: methylPREDNISolone SOD SUC 125 MG/2 ML VIAL IV STA (23:25)
[2019-03-16] MEDS ORDERED: ALBUTEROL 2.5 MG/3 ML NEB RESP TX SCH (23:30)
[2019-03-17 00:43] LABS: Basophils % 0.1 % (0.0-0.8); Hematocrit 34.9 VOL% (35.7-47.0); Hemoglobin 11.3 GM/DL (12.0-16.0); Immature Granulocytes % 0.6 %; Immature Granulocytes Absolute 0.08 #; Lymphocytes % 7.2 % (21.3-54.2); Mean Corpuscular HGB Conc 32.4 GM/DL (32-36); Mean Corpuscular Volume 98.6 FL (87-102); Monocytes % 3.3 % (1.7-12.7); Neutrophils % 88.8 % (38.7-73.9); Platelet Count 166 T/CUMM (130-400); Red Blood Count 3.54 MC/CUMM (3.8-5.5); Red Cell Distribution Width 14.7 % (9.3-17.3); White Blood Count 14.1 T/CUMM (4-12)
[2019-03-17 01:10] LABS: Albumin 3.6 G/DL (3.4-5.0); Bilirubin,Total 0.6 MG/DL (0.2-1.0); Calcium 8.7 MG/DL (8.5-10.1); Osmolality,Calculated 272.7 MOS/KG (273-304); Total Protein 8.2 G/DL (6.4-8.3)
[2019-03-17] MEDS ORDERED: ALBUTEROL/IPRATROPIUM 3 ML NEB RESP TX STA (01:30)
[2019-03-17] MEDS ORDERED: cefTRIAXone 1,000 MG in SODIUM CHLORIDE 0.9% 100 ML IV STA (01:33)
[2019-03-17 01:37] LABS: Anisocytosis Slight; Band Neutrophils 1 % (0-10); Lymphocytes 10 % (20-55); Microcytosis Slight; Segmented Neutrophils 88 % (50-85); Total Cells Counted 100
[2019-03-17 01:39] LABS: Platelet Estimate Normal; Spherocytes Slight
[2019-03-17 01:52] LABS: ABG PCO2 43.9 MM HG (35-48); ABG PH 7.229 (7.35-7.45); ABG PO2 57.2 MM HG (80-95); Allen Test Positive
[2019-03-17 02:05] LABS: Free T4 (Free Thyroxine) 0.46 NG/DL (0.76-1.46); Thyroid Stimulating Hormone 36.4 uIU/ml (0.358-3.74)
[2019-03-17 02:33] LABS: Apearance,Urine CLOUDY (Clear); Bacteria,Urine Occasional /HPF (Few); Bilirubin,Urine Negative (Negative); Blood, Urine Moderate mg/dL (Negative); Glucose,Urine (UA) Negative (Negative); Granular Casts,Urine 4 /LPF (0-1); Hyaline Casts,Urine 1 /LPF (0-3); Ketones,Urine Negative (Negative); Mucus,Urine Occasional /LPF (Occasional); Nitrite,Urine Negative (Negative); Protein,Urine 30 MG/DL; RBC,Urine 16 /HPF (0-4); Squamous Epithelial Cell,Urine Occasional /HPF (0-10); Urine Color Yellow (Yellow); Urine Specific Gravity 1.014 (1.001-1.035); Urine Urobilinogen < 2.0 EU/DL (0.2-1.0); WBC,Urine 4 /HPF (0-6)
[2019-03-17] MEDS ORDERED: diphenhydrAMINE CAP 25 MG CAPSULE PO PRN (03:53)
[2019-03-17] MEDS ORDERED: ONDANSETRON 4 MG/2 ML VIAL IV PRN (03:53)
[2019-03-17] MEDS ORDERED: NICOTINE 21 MG/24 HR PATCH TRANSDERM PRN (03:53)
[2019-03-17] MEDS ORDERED: DOCUSATE SODIUM 100 MG CAPSULE PO PRN (03:53)
[2019-03-17] MEDS ORDERED: ACETAMINOPHEN 325 MG TABLET PO PRN (03:53)
[2019-03-17] MEDS ORDERED: DEXTROSE 5% NACL 0.45% 1,000 ML IV SCH (04:00)
[2019-03-17 05:03] LABS: Barbiturates Screen,Urine Negative (Negative); Benzodiazepines Screen,Urine Negative (Negative); Cannabinoid Screen,Urine Negative (Negative); Opiate Screen,Urine Negative (Negative); Phencyclidine Screen,Urine Negative (Negative)
[2019-03-17] MEDS: traZODone 50 MG TABLET PO PRN ×2 (05:13→21:58)
[2019-03-17 05:21] LABS: Basophils % 0.1 % (0.0-0.8); Hematocrit 33.6 VOL% (35.7-47.0); Hemoglobin 10.8 GM/DL (12.0-16.0); Immature Granulocytes % 0.9 %; Immature Granulocytes Absolute 0.13 #; Lymphocytes # 0.5 10*3/uL (1.4-4.0); Lymphocytes % 3.3 % (21.3-54.2); Mean Corpuscular HGB Conc 32.1 GM/DL (32-36); Mean Corpuscular Volume 99.4 FL (87-102); Mean Platelet Volume 10.2 FL (9.6-12.0); Monocytes % 1.9 % (1.7-12.7); Neutrophils % 93.8 % (38.7-73.9); Platelet Count 161 T/CUMM (130-400); Red Blood Count 3.38 MC/CUMM (3.8-5.5); White Blood Count 14.4 T/CUMM (4-12)
[2019-03-17 05:27] LABS: INR 0.9; PT Patient Result 10.1 SECS
[2019-03-17 05:53] LABS: Calcium 8.4 MG/DL (8.5-10.1); Osmolality,Calculated 272.7 MOS/KG (273-304)
[2019-03-17] MEDS ORDERED: LEVOTHYROXINE 75 MCG TABLET PO SCH ×2 (06:30→08:34)
[2019-03-17 06:41] LABS: Lymphocytes 1 % (20-55); Segmented Neutrophils 97 % (50-85); Total Cells Counted 100
[2019-03-17 06:42] LABS: Anisocytosis 1+; Microcytosis 1+
[2019-03-17 06:43] LABS: Platelet Estimate Normal; Polychromasia Slight
[2019-03-17] MEDS: GABAPENTIN 600 MG TABLET PO SCH ×3 (06:55→21:57)
[2019-03-17] MEDS ORDERED: NALOXONE 0.4 MG/ML VIAL ONE (08:02)
[2019-03-17] MEDS ORDERED: NALOXONE 0.4 MG/ML VIAL IV ONE (08:03)
[2019-03-17] MEDS ORDERED: methylPREDNISolone SOD SUC 125 MG/2 ML VIAL IV ONE (08:05)
[2019-03-17] MEDS ORDERED: SODIUM CHLORIDE 0.9% 500 ML IV ONE (08:10)
[2019-03-17 08:29] LABS: ABG Base Excess -7.8 MMOL/L (-2.5-2.5); ABG HCO3 17.9 MMOL/L (20-26); ABG Oxygen Saturation 82.6 % (95-100); ABG PCO2 44.1 MM HG (35-48); ABG PH 7.247 (7.35-7.45); ABG PO2 55.3 MM HG (80-95); Pt O2 Delivery Device Other
[2019-03-17] MEDS: NOREPINEPHRINE 8 MG in SODIUM CHLORIDE 0.9% 242 ML IV PRN ×2 (08:45→22:46)
[2019-03-17] MEDS ORDERED: AZITHROMYCIN 250 MG TABLET PO SCH (09:00)
[2019-03-17 09:13] LABS: Basophils % 0.2 % (0.0-0.8); Hematocrit 32.5 VOL% (35.7-47.0); Hemoglobin 10.1 GM/DL (12.0-16.0); Immature Granulocytes % 0.8 %; Immature Granulocytes Absolute 0.12 #; Lymphocytes # 0.6 10*3/uL (1.4-4.0); Mean Corpuscular HGB Conc 31.1 GM/DL (32-36); Mean Corpuscular Volume 100.3 FL (87-102); Mean Platelet Volume 10.1 FL (9.6-12.0); Monocytes % 2.6 % (1.7-12.7); Neutrophils % 92.4 % (38.7-73.9); Platelet Count 167 T/CUMM (130-400); Red Blood Count 3.24 MC/CUMM (3.8-5.5); Red Cell Distribution Width 14.9 % (9.3-17.3); White Blood Count 15.6 T/CUMM (4-12)
[2019-03-17 09:35] LABS: CKMB % 2.1 %; Troponin I < 0.015 NG/ML (0.00-0.045)
[2019-03-17 09:36] LABS: Band Neutrophils 9 % (0-10); Lymphocytes 4 % (20-55); Macrocytosis Slight; Segmented Neutrophils 85 % (50-85); Total Cells Counted 100
[2019-03-17 09:37] LABS: Platelet Estimate Adequate
[2019-03-17] MEDS ORDERED: VANCOMYCIN INJ 1,000 MG in SODIUM CHLORIDE 0.9% 250 ML IV ONE (10:00)
[2019-03-17] MEDS: SODIUM CHLORIDE 0.9% 1,000 ML IV SCH ×4 (10:27→23:02)
[2019-03-17] MEDS: ALBUTEROL/IPRATROPIUM 3 ML NEB RESP TX SCH ×4 (10:35→22:49)
[2019-03-17] MEDS: MULTIVITAMIN (CENTRUM) TABLET PO SCH (10:39)
[2019-03-17] MEDS: LEVOTHYROXINE 150 MCG TABLET PO SCH (10:39)
[2019-03-17] MEDS: ENOXAPARIN 30 MG/0.3 ML SYRINGE SUBCUT SCH (10:41)
[2019-03-17] MEDS: PIPERACILLIN/TAZOBACTAM 3,375 MG in SODIUM CHLORIDE 0.9% 100 ML IV SCH ×2 (12:20→22:45)
[2019-03-17] MEDS: methylPREDNISolone SOD SUC 40 MG/1 ML VIAL IV SCH ×2 (12:28→21:57)
[2019-03-18] MEDS: ALBUTEROL/IPRATROPIUM 3 ML NEB RESP TX SCH ×6 (02:56→23:06)
[2019-03-18 04:50] LABS: Basophils % 0.2 % (0.0-0.8); Hematocrit 30.6 VOL% (35.7-47.0); Hemoglobin 9.5 GM/DL (12.0-16.0); Immature Granulocytes % 1.2 %; Immature Granulocytes Absolute 0.19 #; Lymphocytes # 0.8 10*3/uL (1.4-4.0); Lymphocytes % 4.8 % (21.3-54.2); Mean Corpuscular Volume 100.3 FL (87-102); Mean Platelet Volume 10.4 FL (9.6-12.0); Monocytes % 2.8 % (1.7-12.7); Platelet Count 167 T/CUMM (130-400); Red Blood Count 3.05 MC/CUMM (3.8-5.5); Red Cell Distribution Width 15.4 % (9.3-17.3)
[2019-03-18] MEDS: methylPREDNISolone SOD SUC 40 MG/1 ML VIAL IV SCH ×3 (05:20→20:36)
[2019-03-18 05:21] LABS: Albumin 2.4 G/DL (3.4-5.0); Bilirubin,Total 0.9 MG/DL (0.2-1.0); Calcium 7.8 MG/DL (8.5-10.1); Total Protein 6.1 G/DL (6.4-8.3)
[2019-03-18] MEDS: GABAPENTIN 600 MG TABLET PO SCH ×3 (05:21→21:30)
[2019-03-18 05:39] LABS: Band Neutrophils 14 % (0-10); Lymphocytes 8 % (20-55); Segmented Neutrophils 74 % (50-85); Total Cells Counted 100
[2019-03-18 05:40] LABS: Anisocytosis 1+; Platelet Estimate Adequate
[2019-03-18] MEDS: LEVOTHYROXINE 150 MCG TABLET PO SCH (05:47)
[2019-03-18] MEDS: SODIUM CHLORIDE 0.9% 1,000 ML IV SCH (07:10)
[2019-03-18] MEDS ORDERED: CLORAZEPATE 7.5 MG TABLET PO PRN (08:39)
[2019-03-18] MEDS: MULTIVITAMIN (CENTRUM) TABLET PO SCH (08:55)
[2019-03-18] MEDS: ENOXAPARIN 30 MG/0.3 ML SYRINGE SUBCUT SCH (08:55)
[2019-03-18] MEDS: VANCOMYCIN INJ 1,000 MG in SODIUM CHLORIDE 0.9% 250 ML IV SCH (11:52)
[2019-03-18] MEDS: PIPERACILLIN/TAZOBACTAM 3,375 MG in SODIUM CHLORIDE 0.9% 100 ML IV SCH ×2 (11:53→22:38)
[2019-03-19] MEDS: ALBUTEROL/IPRATROPIUM 3 ML NEB RESP TX SCH ×6 (02:58→23:09)
[2019-03-19] MEDS: methylPREDNISolone SOD SUC 40 MG/1 ML VIAL IV SCH ×3 (03:35→22:04)
[2019-03-19] MEDS: LEVOTHYROXINE 150 MCG TABLET PO SCH (06:17)
[2019-03-19] MEDS: GABAPENTIN 600 MG TABLET PO SCH ×3 (06:17→22:04)
[2019-03-19] MEDS ORDERED: FUROSEMIDE 20 MG/2 ML VIAL IV ONE (09:19)
[2019-03-19 10:16] LABS: Basophils % 0.2 % (0.0-0.8); Hematocrit 31.6 VOL% (35.7-47.0); Hemoglobin 9.9 GM/DL (12.0-16.0); Immature Granulocytes % 2.6 %; Immature Granulocytes Absolute 0.34 #; Lymphocytes # 0.8 10*3/uL (1.4-4.0); Lymphocytes % 6.2 % (21.3-54.2); Mean Corpuscular HGB Conc 31.3 GM/DL (32-36); Mean Corpuscular Volume 100.6 FL (87-102); Monocytes % 3.1 % (1.7-12.7); Neutrophils % 87.9 % (38.7-73.9); Platelet Count 184 T/CUMM (130-400); Red Blood Count 3.14 MC/CUMM (3.8-5.5); White Blood Count 13.3 T/CUMM (4-12)
[2019-03-19 10:37] LABS: Hypochromasia 1+; Lymphocytes 5 % (20-55); Platelet Estimate Normal; Segmented Neutrophils 92 % (50-85); Total Cells Counted 100
[2019-03-19 10:46] LABS: Calcium 8.4 MG/DL (8.5-10.1)
[2019-03-19] MEDS: MULTIVITAMIN (CENTRUM) TABLET PO SCH (11:14)
[2019-03-19] MEDS: ENOXAPARIN 30 MG/0.3 ML SYRINGE SUBCUT SCH (11:15)
[2019-03-19] MEDS: VANCOMYCIN INJ 1,000 MG in SODIUM CHLORIDE 0.9% 250 ML IV SCH (11:22)
[2019-03-19] MEDS: PIPERACILLIN/TAZOBACTAM 3,375 MG in SODIUM CHLORIDE 0.9% 100 ML IV SCH ×3 (11:33→20:29)
[2019-03-19] MEDS ORDERED: POTASSIUM CHLORIDE 20 MEQ TABLET PO ONE (11:56)
[2019-03-19] MEDS ORDERED: MAGNESIUM SULF RIDER 2 GM in PREMIX 1 EACH IV ONE (11:56)
[2019-03-20] MEDS: ALBUTEROL/IPRATROPIUM 3 ML NEB RESP TX SCH ×2 (03:25→07:27)
[2019-03-20] MEDS: PIPERACILLIN/TAZOBACTAM 3,375 MG in SODIUM CHLORIDE 0.9% 100 ML IV SCH (04:11)
[2019-03-20 04:59] LABS: Basophils % 0.2 % (0.0-0.8); Hematocrit 30.3 VOL% (35.7-47.0); Hemoglobin 9.8 GM/DL (12.0-16.0); Immature Granulocytes % 6.4 %; Lymphocytes % 10.3 % (21.3-54.2); Mean Corpuscular HGB Conc 32.3 GM/DL (32-36); Mean Corpuscular Volume 98.7 FL (87-102); Mean Platelet Volume 10.1 FL (9.6-12.0); Monocytes % 7.1 % (1.7-12.7); NRBC # 0.03 10*3/uL; Platelet Count 202 T/CUMM (130-400); Red Blood Count 3.07 MC/CUMM (3.8-5.5); Red Cell Distribution Width 15.6 % (9.3-17.3); White Blood Count 9.4 T/CUMM (4-12)
[2019-03-20 05:26] LABS: Calcium 8.4 MG/DL (8.5-10.1); Osmolality,Calculated 283.1 MOS/KG (273-304)
[2019-03-20 05:36] LABS: Lymphocytes 9 % (20-55); Segmented Neutrophils 89 % (50-85); Total Cells Counted 100
[2019-03-20 05:37] LABS: Hypochromasia Slight; Platelet Estimate Adequate
[2019-03-20] MEDS: LEVOTHYROXINE 150 MCG TABLET PO SCH (06:08)
[2019-03-20] MEDS: GABAPENTIN 600 MG TABLET PO SCH (06:08)
[2019-03-20] MEDS: ENOXAPARIN 30 MG/0.3 ML SYRINGE SUBCUT SCH (08:01)
[2019-03-20] MEDS: MULTIVITAMIN (CENTRUM) TABLET PO SCH (08:01)
[2019-03-20] MEDS: methylPREDNISolone SOD SUC 40 MG/1 ML VIAL IV SCH (08:33)
[2019-03-20 08:38] VITALS: BP 160/96
[2019-03-20] MEDS ORDERED: HEPARIN LOCK FLUSH 500 UNIT/5 ML SYRINGE IV ONE (08:45)
[2019-03-20] MEDS ORDERED: amLODIPine 2.5 MG TABLET PO SCH (09:00)
== END 2019-03-20 11:24 | disposition home health service (06) | DRG 867 ==
LOC: EDBD → EDUNIT# → N.ED 22:27 → SUATTDRO 03-17 03:53 → SUPCPDRO 03-17 03:53 → N.EDINP 03-17 03:53 → N.4E 03-17 04:29 → N.ICU 03-17 08:46 → N.4E 03-18 13:13
PROVIDERS: ADMIT Internal Medicine; ATTEND Internal Medicine Cardiovascular Disease

== ENCOUNTER 2020-03-10 22:12 | Observation (INO) ==
[2020-03-10] MEDS ORDERED: LORazepam 2 MG/1 ML VIAL IV STA (22:36)
[2020-03-10 23:10] LABS: Barbiturates Screen,Urine Negative (Negative); Benzodiazepines Screen,Urine Negative (Negative); Cannabinoid Screen,Urine Positive (Negative); Opiate Screen,Urine Negative (Negative); Phencyclidine Screen,Urine Negative (Negative)
[2020-03-10 23:28] LABS: Apearance,Urine Slightly Hazy (Clear); Bilirubin,Urine Negative (Negative); Blood, Urine Large mg/dL (Negative); Glucose,Urine (UA) Negative (Negative); Ketones,Urine Negative (Negative); Mucus,Urine Occasional /LPF (Occasional); Nitrite,Urine Negative (Negative); Protein,Urine 30 MG/DL; RBC,Urine 182 /HPF (0-4); Squamous Epithelial Cell,Urine Occasional /HPF (0-10); Urine Color Yellow (Yellow); Urine Specific Gravity 1.017 (1.001-1.035); Urine Urobilinogen < 2.0 EU/DL (0.2-1.0); WBC,Urine 36 /HPF (0-6)
[2020-03-10 23:33] LABS: Basophils % 0.7 % (0.0-0.8); Eosinophils # 0.1 10*3/uL (0.0-0.87); Eosinophils % 1.4 % (0.00-10.9); Hematocrit 35.3 VOL% (35.7-47.0); Hemoglobin 11.8 GM/DL (12.0-16.0); Immature Granulocytes % 0.2 %; Immature Granulocytes Absolute 0.01 #; Lymphocytes # 1.8 10*3/uL (1.4-4.0); Lymphocytes % 29.7 % (21.3-54.2); Mean Corpuscular HGB Conc 33.4 GM/DL (32-36); Mean Corpuscular Volume 100.6 FL (87-102); Mean Platelet Volume 9.4 FL (9.6-12.0); Monocytes % 9.6 % (1.7-12.7); Neutrophils % 58.4 % (38.7-73.9); Platelet Count 212 T/CUMM (130-400); Red Blood Count 3.51 MC/CUMM (3.8-5.5); White Blood Count 5.9 T/CUMM (4-12)
[2020-03-10] MEDS ORDERED: PHENAZOPYRIDINE 95 MG TABLET PO STA (23:43)
[2020-03-10] MEDS ORDERED: AMOXICILLIN/CLAV 875 MG TABLET PO ONE (23:43)
[2020-03-10 23:47] LABS: PT Patient Result 10.7 SECS (9.8-11.9)
[2020-03-10 23:51] LABS: Alanine Aminotransferase 94 U/L (13-56); Alkaline Phosphatase 84 U/L (45-117); Aspartate Amino Transferase 113 U/L (0-37); Blood Urea Nitrogen 20 MG/DL (7-18); CKMB % 1.2 %; Calcium 8.9 MG/DL (8.5-10.1); Estimated Glom Filtration Rate 42 ML/MIN; Ferritin 157.8 ng/ml (8-252); Glucose 88 MG/DL (74-106); Osmolality,Calculated 271.1 MOS/KG (273-304); Total Protein 8.2 G/DL (6.4-8.3); Troponin I < 0.015 NG/ML (0.00-0.045)
[2020-03-11] MEDS ORDERED: AMPICILLIN/SULBACTAM 3,000 MG in SODIUM CHLORIDE 0.9% 100 ML IV STA (00:28)
[2020-03-11] MEDS ORDERED: ACETAMINOPHEN 325 MG TABLET PO PRN (04:24)
[2020-03-11] MEDS ORDERED: DOCUSATE SODIUM 100 MG CAPSULE PO PRN (04:24)
[2020-03-11] MEDS ORDERED: LORazepam 2 MG/1 ML VIAL IV PRN (04:24)
[2020-03-11] MEDS ORDERED: ONDANSETRON 4 MG/2 ML VIAL IV PRN (04:24)
[2020-03-11] MEDS ORDERED: MAGNESIUM SULF RIDER 2 GM in PREMIX 1 EACH IV PRN (04:38)
[2020-03-11] MEDS ORDERED: MAGNESIUM SULF RIDER 4 GM in PREMIX 1 EACH IV PRN (04:38)
[2020-03-11] MEDS ORDERED: POTASSIUM CHLORIDE RIDER 10 MEQ in PREMIX 1 EACH IV PRN (04:38)
[2020-03-11] MEDS: ENOXAPARIN 40 MG/0.4 ML SYRINGE SUBCUT SCH (04:40)
[2020-03-11] MEDS: MEROPENEM 500 MG in SODIUM CHLORIDE 0.9% 100 ML IV SCH ×3 (04:45→21:07)
[2020-03-11] MEDS: SODIUM CHLORIDE 0.9% 1,000 ML IV SCH ×3 (04:45→21:57)
[2020-03-11 06:52] LABS: Basophils % 0.6 % (0.0-0.8); Eosinophils # 0.1 10*3/uL (0.0-0.87); Eosinophils % 1.9 % (0.00-10.9); Hematocrit 35.8 VOL% (35.7-47.0); Hemoglobin 11.5 GM/DL (12.0-16.0); Immature Granulocytes % 0.4 %; Immature Granulocytes Absolute 0.02 #; Lymphocytes # 1.9 10*3/uL (1.4-4.0); Lymphocytes % 35.8 % (21.3-54.2); Mean Corpuscular HGB Conc 32.1 GM/DL (32-36); Mean Corpuscular Volume 102.6 FL (87-102); Mean Platelet Volume 9.1 FL (9.6-12.0); Monocytes % 8.9 % (1.7-12.7); Neutrophils % 52.4 % (38.7-73.9); Platelet Count 208 T/CUMM (130-400); Red Blood Count 3.49 MC/CUMM (3.8-5.5); Red Cell Distribution Width 17.2 % (9.3-17.3); White Blood Count 5.3 T/CUMM (4-12)
[2020-03-11 07:02] LABS: Osmolality,Calculated 274.8 MOS/KG (273-304)
[2020-03-11] MEDS: POTASSIUM CHLORIDE RIDER 20 MEQ in PREMIX 1 EACH IV PRN ×2 (13:46→17:31)
[2020-03-11] MEDS ORDERED: ALBUTEROL 1.25 MG/3 ML NEB RESP TX PRN (16:44)
[2020-03-11] MEDS ORDERED: ALPRAZolam 0.25 MG TABLET PO PRN (16:52)
[2020-03-12] MEDS: MEROPENEM 500 MG in SODIUM CHLORIDE 0.9% 100 ML IV SCH (05:16)
[2020-03-12] MEDS: SODIUM CHLORIDE 0.9% 1,000 ML IV SCH (06:07)
[2020-03-12] MEDS: ENOXAPARIN 40 MG/0.4 ML SYRINGE SUBCUT SCH (06:07)
[2020-03-12 06:08] LABS: Basophils # 0.1 10*3/uL (0.0-0.2); Basophils % 0.9 % (0.0-0.8); Eosinophils # 0.1 10*3/uL (0.0-0.87); Hematocrit 32.6 VOL% (35.7-47.0); Hemoglobin 10.7 GM/DL (12.0-16.0); Immature Granulocytes % 0.4 %; Immature Granulocytes Absolute 0.02 #; Lymphocytes # 2.6 10*3/uL (1.4-4.0); Lymphocytes % 47.8 % (21.3-54.2); Mean Corpuscular HGB Conc 32.8 GM/DL (32-36); Mean Corpuscular Volume 102.8 FL (87-102); Mean Platelet Volume 10.4 FL (9.6-12.0); Monocytes % 7.5 % (1.7-12.7); Neutrophils % 41.4 % (38.7-73.9); Platelet Count 184 T/CUMM (130-400); Red Blood Count 3.17 MC/CUMM (3.8-5.5); Red Cell Distribution Width 17.4 % (9.3-17.3); White Blood Count 5.4 T/CUMM (4-12)
[2020-03-12 06:21] LABS: Osmolality,Calculated 271.8 MOS/KG (273-304)
[2020-03-12 08:38] VITALS: BP 147/90
[2020-03-12] MEDS ORDERED: GABAPENTIN 600 MG TABLET PO SCH (09:00)
[2020-03-12] MEDS ORDERED: CHOLECALCIFEROL 1,000 UNIT TABLET PO SCH (09:00)
[2020-03-12] MEDS ORDERED: amLODIPine 2.5 MG TABLET PO SCH (09:00)
[2020-03-12] MEDS ORDERED: CYANOCOBALAMIN 500 MCG TABLET PO SCH (09:00)
[2020-03-12] MEDS ORDERED: lisinopriL 10 MG TABLET PO SCH (09:00)
[2020-03-12] MEDS: LEVOTHYROXINE 100 MCG VIAL IV SCH ×2 (09:51→09:55)
[2020-03-12] MEDS ORDERED: MEROPENEM 500 MG in SODIUM CHLORIDE 0.9% 100 ML IV SCH (12:30)
== END 2020-03-12 11:15 | disposition home or self-care (01) ==
LOC: EDUNIT# → EDBD → N.ED 22:12 → N.EDINP 22:12 → N.4E 03-11 11:14
PROVIDERS: ADMIT Internal Medicine; ATTEND Internal Medicine

== ENCOUNTER 2021-06-23 00:03 | Observation (INO) ==
[2021-06-23] MEDS ORDERED: SODIUM CHLORIDE 0.9% 1,000 ML IV STA (00:40)
[2021-06-23 01:48] LABS: Basophils % 0.9 % (0.0-0.8); Eosinophils # 0.1 10*3/uL (0.0-0.87); Eosinophils % 1.7 % (0.00-10.9); Hematocrit 35.8 VOL% (35.7-47.0); Hemoglobin 11.6 GM/DL (12.0-16.0); Lymphocytes # 1.7 10*3/uL (1.4-4.0); Lymphocytes % 48.3 % (21.3-54.2); Mean Corpuscular HGB Conc 32.4 GM/DL (32-36); Mean Corpuscular Volume 97.3 FL (87-102); Mean Platelet Volume 10.4 FL (9.6-12.0); Monocytes % 7.4 % (1.7-12.7); Neutrophils % 41.7 % (38.7-73.9); Platelet Count 232 T/CUMM (130-400); Red Blood Count 3.68 MC/CUMM (3.8-5.5); Red Cell Distribution Width 16.6 % (9.3-17.3); White Blood Count 3.5 T/CUMM (4-12)
[2021-06-23 01:57] LABS: INR 1.1; PT Patient Result 12.4 SECS (10.5-12.0)
[2021-06-23 02:09] LABS: Albumin 3.7 G/DL (3.4-5.0); Bilirubin,Total 0.4 MG/DL (0.20-1.00); Calcium 8.7 MG/DL (8.5-10.1); Osmolality,Calculated 279.5 MOS/KG (273-304); Potassium 4.7 MMOL/L (3.5-5.1); Total Protein 8.6 G/DL (6.4-8.2)
[2021-06-23 03:26] LABS: ABG Base Excess 0.5 MMOL/L (-2.5-2.5); ABG Oxygen Saturation 89.6 % (95-100); ABG PCO2 52.1 MM HG (35-48); ABG PH 7.332 (7.35-7.45); ABG TCO2 28.6 MMOL/L (23-27)
[2021-06-23 04:09] LABS: Bilirubin,Urine Negative (Negative); Blood, Urine Small mg/dL (Negative); Glucose,Urine (UA) Negative (Negative); Ketones,Urine Negative (Negative); Mucus,Urine Occasional /LPF (Occasional); Nitrite,Urine Negative (Negative); Protein,Urine Negative; RBC,Urine 4 /HPF (0-4); Urine Appearance CLEAR (Clear); Urine Color Yellow (Yellow); Urine Specific Gravity 1.017 (1.001-1.035); Urine Urobilinogen < 2.0 EU/DL (0.2-1.0)
[2021-06-23] MEDS ORDERED: cefTRIAXone 1,000 MG in SODIUM CHLORIDE 0.9% 100 ML IV STA (04:39)
[2021-06-23 04:47] LABS: Barbiturates Screen,Urine Negative (Negative); Benzodiazepines Screen,Urine Positive (Negative); Cannabinoid Screen,Urine Positive (Negative); Opiate Screen,Urine Negative (Negative); Phencyclidine Screen,Urine Negative (Negative)
[2021-06-23] MEDS ORDERED: GLUCAGON 1 MG VIAL IM PRN (05:53)
[2021-06-23] MEDS ORDERED: ONDANSETRON 4 MG/2 ML VIAL IV PRN (05:53)
[2021-06-23] MEDS ORDERED: DEXTROSE 50% 25 GM/50 ML VIAL IV PRN (05:53)
[2021-06-23] MEDS ORDERED: NICOTINE 21 MG/24 HR PATCH TRANSDERM PRN (05:53)
[2021-06-23] MEDS: SODIUM CHLORIDE 0.9% 1,000 ML IV SCH ×2 (06:55→18:31)
[2021-06-23] MEDS: PANTOPRAZOLE 40 MG TABLET PO SCH (09:57)
[2021-06-23] MEDS: ENOXAPARIN 40 MG/0.4 ML SYRINGE SUBCUT SCH (09:57)
[2021-06-23] MEDS ORDERED: ALPRAZolam 0.5 MG TABLET PO ONE (20:57)
[2021-06-24 04:56] LABS: Eosinophils # 0.1 10*3/uL (0.0-0.87); Eosinophils % 2.2 % (0.00-10.9); Hematocrit 36.6 VOL% (35.7-47.0); Hemoglobin 11.4 GM/DL (12.0-16.0); Immature Granulocytes % 0.3 %; Immature Granulocytes Absolute 0.01 #; Lymphocytes # 1.7 10*3/uL (1.4-4.0); Lymphocytes % 53.7 % (21.3-54.2); Mean Corpuscular HGB Conc 31.1 GM/DL (32-36); Mean Corpuscular Volume 101.4 FL (87-102); Mean Platelet Volume 9.1 FL (9.6-12.0); Monocytes % 8.3 % (1.7-12.7); Neutrophils % 34.5 % (38.7-73.9); Platelet Count 203 T/CUMM (130-400); Red Blood Count 3.61 MC/CUMM (3.8-5.5); Red Cell Distribution Width 16.2 % (9.3-17.3); White Blood Count 3.2 T/CUMM (4-12)
[2021-06-24 05:34] LABS: Calcium 7.2 MG/DL (8.5-10.1); Osmolality,Calculated 280.1 MOS/KG (273-304); Potassium 3.1 MMOL/L (3.5-5.1); Risk Ratio 4.22; Thyroid Stimulating Hormone 85.7 uIU/ml (0.358-3.74); VLDL Cholesterol 31.8 MG/DL
[2021-06-24 05:40] LABS: Hypochromasia 1+; Lymphocytes 54 % (20-55); Microcytosis 1+; Platelet Estimate Adequate; Segmented Neutrophils 36 % (50-85); Total Cells Counted 100
[2021-06-24] MEDS ORDERED: cefTRIAXone 1,000 MG in SODIUM CHLORIDE 0.9% 100 ML IV SCH (06:00)
[2021-06-24] MEDS: SODIUM CHLORIDE 0.9% 1,000 ML IV SCH ×2 (06:28→14:29)
[2021-06-24] MEDS ORDERED: POTASSIUM CHLORIDE 20 MEQ TABLET PO PRN (08:18)
[2021-06-24] MEDS ORDERED: POTASSIUM CHLORIDE 20 MEQ TABLET PO ONE (08:18)
[2021-06-24] MEDS ORDERED: MAGNESIUM SULF RIDER 4 GM/100 ML PREMIX IV PRN (08:19)
[2021-06-24] MEDS ORDERED: MAGNESIUM SULF RIDER 2 GM/50 ML PREMIX IV PRN (08:19)
[2021-06-24] MEDS: PANTOPRAZOLE 40 MG TABLET PO SCH (08:30)
[2021-06-24] MEDS: ENOXAPARIN 40 MG/0.4 ML SYRINGE SUBCUT SCH (08:31)
[2021-06-24] MEDS ORDERED: ALPRAZolam 0.5 MG TABLET PO SCH (12:00)
[2021-06-24 12:11] VITALS: BP 123/86
[2021-06-24] MEDS ORDERED: MORPHINE 2 MG/1 ML SYRINGE IM ONE (12:36)
[2021-06-25] MEDS ORDERED: ALPRAZolam 0.5 MG TABLET PO SCH (12:00)
== END 2021-06-24 13:36 | disposition left against medical advice (07) ==
LOC: EDBD → EDUNIT# → SUATTDRO → N.ED 00:03 → INTOOBSV 05:53 → N.EDINP 05:53 → N.4E 07:44
PROVIDERS: ADMIT Internal Medicine; ATTEND Internal Medicine